=== PATIENT | male | born 1965 | race Caucasian/White ===

== ENCOUNTER 2017-02-18 13:36 | Observation (INO) | payer SELFPAY ==
[~2017-02-18] VITALS: Ht 182.9 cm; Wt 153.6 kg
[2017-02-18] MEDS ORDERED: ATOR40TA78 PO (13:51)
[2017-02-18] MEDS ORDERED: AMIO200T42 PO (13:51)
[2017-02-18] MEDS ORDERED: METO25TA35 PO (13:51)
[2017-02-18] MEDS ORDERED: LISI-170 PO (13:51)
[2017-02-18] MEDS ORDERED: SODIUM CHLORIDE FLUSH 10ML SYR IVF ONE (14:30)
[2017-02-18] MEDS ORDERED: MORPHINE SULFATE 4 MG/ML, 1ML ONE ×3 (14:31→20:10)
[2017-02-18 14:32] LABS: HEMOGLOBIN 14.1 g/dL (13.7-18.0)
[2017-02-18] MEDS: MORPHINE SULFATE 4 MG/ML, 1ML IVPush PRN ×3 (14:35→20:11)
[2017-02-18 14:44] LABS: ASPARTATE AMINO TRANSFERASE 15 U/L (15-37); BLOOD UREA NITROGEN 17 mg/dL (7-18)
[2017-02-18 14:50] LABS: IS PT STATUS REG ER OR PRE ER? YES
[2017-02-18] MEDS ORDERED: BISACODYL 10 MG SUPP PR PRN (17:00)
[2017-02-18] MEDS ORDERED: POLYETHYLENE GLYCOL 17 GM PACKET PO PRN (17:00)
[2017-02-18] MEDS ORDERED: HYDROcodone/APAP 5/325 TABLET PO PRN (17:00)
[2017-02-18] MEDS ORDERED: NITROGLYCERIN 0.4 MG BOTTLE (25 TABS) SL PRN (17:00)
[2017-02-18] MEDS ORDERED: ENOXAPARIN 40 MG/0.4 ML SQ SCH (17:00)
[2017-02-18] MEDS ORDERED: ONDANSETRON 2MG/ML, 2ML IVP PRN (17:00)
[2017-02-18] MEDS ORDERED: LABETALOL 5MG/ML, 20ML IV PRN (17:00)
[2017-02-18] MEDS ORDERED: ACETAMINOPHEN 325 MG TABLET PO PRN (17:00)
[2017-02-18] MEDS ORDERED: DOCUSATE 100 MG CAPSULE PO PRN (17:00)
[2017-02-18] MEDS ORDERED: ENOXAPARIN 40 MG/0.4 ML ONE (17:59)
[2017-02-18] MEDS ORDERED: HYDROcodone/APAP 5/325 TABLET ONE (18:13)
[2017-02-18 19:51] LABS: IS PT STATUS REG ER OR PRE ER? YES
[2017-02-18] MEDS ORDERED: ATORVASTATIN 40 MG TABLET PO SCH (21:00)
[2017-02-18 23:28] VITALS: BP 140/97
[2017-02-19 01:05] VITALS: BP 138/89
[2017-02-19] MEDS: MORPHINE SULFATE 4 MG/ML, 1ML IVPush PRN ×4 (01:11→13:00)
[2017-02-19] MEDS: METOPROLOL TARTRATE 25 MG TABLET PO SCH ×2 (01:12→13:00)
[2017-02-19] MEDS: SODIUM CHLORIDE FLUSH 10ML SYR IVF SCH ×2 (01:13→08:37)
[2017-02-19] MEDS ORDERED: PNEUMOCOCCAL 23 VACCINE IM-VACC ONE (02:30)
[2017-02-19 02:41] LABS: IS PT STATUS REG ER OR PRE ER? NO
[2017-02-19] MEDS ORDERED: ASPIRIN 325 MG TABLET EC PO SCH (06:00)
[2017-02-19 07:47] VITALS: BP 111/71
[2017-02-19] MEDS ORDERED: LISINOPRIL 20 MG TABLET PO SCH (09:00)
[2017-02-19] MEDS ORDERED: AMIODARONE 200 MG TABLET PO SCH (09:00)
[2017-02-19] MEDS ORDERED: REGADENOSON 0.4 MG/5 ML SYRINGE ONE (09:52)
[2017-02-19 12:45] VITALS: BP 170/109
[2017-02-19 15:30] VITALS: BP 124/81
== END 2017-02-19 16:55 | disposition home or self-care (01) ==
LOC: ED 14:05 → EDIP 16:28 → INTOOBSV 16:28 → 5SO 22:20 → DCLOUNGE 02-19 16:40
PROVIDERS: ADMIT Internal Medicine; ATTEND Internal Medicine
DX: R07.89 Other chest pain (principal); I48.91 Unspecified atrial fibrillation; I11.9 Hypertensive heart disease without heart failure; E78.5 Hyperlipidemia, unspecified; E66.01 Morbid (severe) obesity due to excess calories; E44.0 Moderate protein-calorie malnutrition; I25.2 Old myocardial infarction; Z87.891 Personal history of nicotine dependence; Z82.3 Family history of stroke; Z82.49 Family history of ischemic heart disease and other diseases of the circulatory system; Z83.3 Family history of diabetes mellitus; Z90.49 Acquired absence of other specified parts of digestive tract
CPT/HCPCS: 36415; 71010; 78452; 80053; 80061; 83880; 84484; 85025; 85610; 85730; 93005; 93017; 96372; 96374; 96376; 99285; A9502; C9898; G0378; J1650; J2785

== ENCOUNTER 2018-04-10 18:16 | Inpatient (IN) | payer OTHER ==
[~2018-04-10] VITALS: Ht 182.9 cm; Wt 158.9 kg
[~2018-04-10 18:16] MED LIST: AMIO200T42 PO; ATOR40TA78 PO; LISI-167 PO; LISI-170 PO; METO25TA35 PO
[2018-04-10] MEDS ORDERED: ASPIRIN 81 MG TABLET CHEW PO ONE (19:00)
[2018-04-10 19:07] LABS: BASOPHILS # (AUTO) 0.08 x10^3/uL (0-0.1); BASOPHILS % (AUTO) 1 % (0-1); EOSINOPHILS # (AUTO) 0.06 x10^3/uL (0-0.4); EOSINOPHILS % (AUTO) 1 % (1-7); LYMPHOCYTES # (AUTO) 2.51 x10^3/uL (1-3.4); LYMPHOCYTES % (AUTO) 20 % (22-44); MD NO; MEAN CORPUSCULAR HEMOGLOBIN 30.3 pg (27.5-34.5); MEAN CORPUSCULAR HGB CONC 32.9 g/dL (33.2-36.2); MEAN PLATELET VOLUME 8.1 fL (7.4-10.4); MONOCYTES # (AUTO) 1.04 x10^3/uL (0.2-0.8); MONOCYTES % (AUTO) 8 % (2-9); NEUTROPHILS # (AUTO) 8.72 x10^3/uL (1.8-6.8); NEUTROPHILS % (AUTO) 70 % (42-75); PLATELET COUNT 354 x10^3/uL (130-400); RED BLOOD COUNT 5.08 x10^6/uL (4.38-5.82); RED CELL DISTRIBUTION WIDTH 13.3 % (9.4-14.8)
[2018-04-10 19:20] LABS: ALANINE AMINOTRANSFERASE 28 U/L (12-78); ALBUMIN 3.9 g/dL (3.4-5.0); ANION GAP 8 mmol/L (5-15); CHLORIDE 106 mmol/L (98-107); CREATININE 1.08 mg/dL (0.7-1.3)
[2018-04-10 19:24] LABS: ALKALINE PHOSPHATASE 137 U/L (45-117); BILIRUBIN,TOTAL 0.5 mg/dL (0.2-1.0); TOTAL PROTEIN 8.1 g/dL (6.4-8.2); TROPONIN I < 0.015 ng/mL (0.000-0.045)
[2018-04-10] MEDS ORDERED: ASPIRIN 81 MG TABLET CHEW ONE (19:51)
[2018-04-10] MEDS ORDERED: ONDANSETRON 2MG/ML, 2ML ONE (20:14)
[2018-04-10] MEDS ORDERED: MORPHINE SULFATE 4 MG/ML, 1ML ONE (20:15)
[2018-04-10] MEDS ORDERED: MORPHINE SULFATE 4 MG/ML, 1ML IVPush PRN ×2 (20:30→21:30)
[2018-04-10] MEDS ORDERED: ONDANSETRON 2MG/ML, 2ML IVPush ONE (20:30)
[2018-04-10] MEDS ORDERED: SODIUM CHLORIDE 0.9% 1,000 ML IV ONE (21:09)
[2018-04-10] MEDS ORDERED: ONDANSETRON 2MG/ML, 2ML IVPush PRN ×2 (21:30→22:00)
[2018-04-10] MEDS ORDERED: ACETAMINOPHEN 325 MG TABLET PO PRN (22:00)
[2018-04-10] MEDS ORDERED: ATORVASTATIN 40 MG TABLET PO SCH (22:00)
[2018-04-10] MEDS ORDERED: POLYETHYLENE GLYCOL 17 GM PACKET PO PRN (22:00)
[2018-04-10] MEDS ORDERED: BISACODYL 10 MG SUPP PR PRN (22:00)
[2018-04-10] MEDS ORDERED: NITROGLYCERIN 0.4 MG BOTTLE (25 TABS) SL PRN (22:00)
[2018-04-10 22:41] VITALS: BP 128/86
[2018-04-10] MEDS: morphine SULFATE 10 MG/ML, 1ML IVPush PRN (23:31)
[2018-04-10] MEDS: METOPROLOL TARTRATE 25 MG TABLET PO SCH (23:31)
[2018-04-10] MEDS: SODIUM CHLORIDE FLUSH 10ML SYR IVF SCH (23:31)
[2018-04-10] MEDS: HEPARIN 5,000 UNITS/ML, 1ML SQ SCH (23:32)
[2018-04-10 23:43] LABS: FREE T4 (FREE THYROXINE) 1.08 ng/dL (0.76-1.46); THYROID STIMULATING HORMONE 1.01 mIU/L (0.358-3.740)
[2018-04-11 01:47] LABS: TROPONIN I < 0.015 ng/mL (0.000-0.045)
[2018-04-11 01:55] VITALS: BP 117/80
[2018-04-11] MEDS: morphine SULFATE 10 MG/ML, 1ML IVPush PRN ×5 (02:31→14:52)
[2018-04-11 02:43] LABS: MICROSCOPIC NOT IND
[2018-04-11 02:57] LABS: CULTURE INDICATED? NO
[2018-04-11] MEDS ORDERED: ASPIRIN 81 MG TABLET EC PO SCH (06:00)
[2018-04-11 07:02] VITALS: BP 105/69
[2018-04-11 07:28] LABS: BASOPHILS # (AUTO) 0.07 x10^3/uL (0-0.1); BASOPHILS % (AUTO) 1 % (0-1); EOSINOPHILS # (AUTO) 0.07 x10^3/uL (0-0.4); EOSINOPHILS % (AUTO) 1 % (1-7); LYMPHOCYTES % (AUTO) 25 % (22-44); MD NO; MEAN CORPUSCULAR HGB CONC 32.9 g/dL (33.2-36.2); MEAN CORPUSCULAR VOLUME 91.1 fL (81-97); MEAN PLATELET VOLUME 8.2 fL (7.4-10.4); MONOCYTES # (AUTO) 1.01 x10^3/uL (0.2-0.8); MONOCYTES % (AUTO) 11 % (2-9); NEUTROPHILS # (AUTO) 5.98 x10^3/uL (1.8-6.8); NEUTROPHILS % (AUTO) 63 % (42-75); PLATELET COUNT 326 x10^3/uL (130-400); RED BLOOD COUNT 4.76 x10^6/uL (4.38-5.82); RED CELL DISTRIBUTION WIDTH 13.3 % (9.4-14.8)
[2018-04-11 07:37] LABS: TROPONIN I < 0.015 ng/mL (0.000-0.045)
[2018-04-11] MEDS ORDERED: REGADENOSON 0.4 MG/5 ML SYRINGE ONE (08:13)
[2018-04-11] MEDS: SODIUM CHLORIDE FLUSH 10ML SYR IVF SCH (08:17)
[2018-04-11] MEDS: HEPARIN 5,000 UNITS/ML, 1ML SQ SCH (08:18)
[2018-04-11] MEDS ORDERED: SENNA/DOCUSATE TABLET PO SCH (09:00)
[2018-04-11] MEDS ORDERED: LISINOPRIL 10 MG TABLET PO SCH (09:00)
[2018-04-11 11:14] VITALS: BP 132/89
[2018-04-11] MEDS: METOPROLOL TARTRATE 25 MG TABLET PO SCH (11:38)
[2018-04-11 14:57] VITALS: BP 113/75
[2018-04-11 15:34] VITALS: BP 104/72
== END 2018-04-11 18:18 | disposition home or self-care (01) | DRG 313 ==
LOC: ED 20:47 → EDIP 21:09 → 5SO 22:45
PROVIDERS: ADMIT Internal Medicine; ATTEND Internal Medicine
DX: R07.89 Other chest pain (principal); Z68.42 Body mass index [BMI] 45.0-49.9, adult; Z56.6 Other physical and mental strain related to work; D72.829 Elevated white blood cell count, unspecified; E66.01 Morbid (severe) obesity due to excess calories; E78.5 Hyperlipidemia, unspecified; F41.9 Anxiety disorder, unspecified; I10 Essential (primary) hypertension; I48.0 Paroxysmal atrial fibrillation; Z82.3 Family history of stroke; Z87.891 Personal history of nicotine dependence; Z82.49 Family history of ischemic heart disease and other diseases of the circulatory system; Z90.49 Acquired absence of other specified parts of digestive tract; I25.2 Old myocardial infarction; Z88.5 Allergy status to narcotic agent; Z88.8 Allergy status to other drugs, medicaments and biological substances
CPT/HCPCS: 36415; 71045; 78452; 80053; 81003; 84439; 84443; 84484; 85025; 93005; 93017; J1644; J2405; J2785; A9502; C9898; J2270; J7030

== ENCOUNTER 2018-12-10 15:07 | Observation (INO) | payer MEDICAID ==
[~2018-12-10] VITALS: Ht 182.9 cm; Wt 157.6 kg
[~2018-12-10 15:07] MED LIST changes: +ATOR20TA37 PO; +FURO-93 PO; +METO50TA82 PO; +POTA10TA11 PO; +RIVA20TA PO; +SPIR25TA5 PO
[2018-12-10] MEDS ORDERED: SODIUM CHLORIDE FLUSH 10ML SYR IVF ONE (15:30)
[2018-12-10 15:39] LABS: BASOPHILS # (AUTO) 0.03 x10^3/uL (0-0.1); BASOPHILS % (AUTO) 0 % (0-1); EOSINOPHILS # (AUTO) 0.08 x10^3/uL (0-0.4); EOSINOPHILS % (AUTO) 1 % (1-7); LYMPHOCYTES % (AUTO) 20 % (22-44); MD NO; MEAN CORPUSCULAR HEMOGLOBIN 30.5 pg (27.5-34.5); MEAN CORPUSCULAR HGB CONC 32.5 g/dL (33.2-36.2); MEAN PLATELET VOLUME 8.1 fL (7.4-10.4); MONOCYTES # (AUTO) 0.84 x10^3/uL (0.2-0.8); MONOCYTES % (AUTO) 7 % (2-9); NEUTROPHILS # (AUTO) 8.13 x10^3/uL (1.8-6.8); NEUTROPHILS % (AUTO) 71 % (42-75); PLATELET COUNT 393 x10^3/uL (130-400); RED BLOOD COUNT 5.11 x10^6/uL (4.38-5.82); RED CELL DISTRIBUTION WIDTH 13.3 % (9.4-14.8)
[2018-12-10] MEDS ORDERED: ACETAMINOPHEN 500 MG TABLET ONE (15:43)
[2018-12-10 15:49] LABS: ALANINE AMINOTRANSFERASE 21 U/L (12-78); ALBUMIN 3.7 g/dL (3.4-5.0); ANION GAP 8 mmol/L (5-15); CALCIUM 9.3 mg/dL (8.5-10.1); CHLORIDE 107 mmol/L (98-107); CREATININE 0.99 mg/dL (0.7-1.3)
[2018-12-10 15:53] LABS: ALKALINE PHOSPHATASE 117 U/L (45-117); BILIRUBIN,TOTAL 0.3 mg/dL (0.2-1.0); TROPONIN I < 0.015 ng/mL (0.000-0.045)
[2018-12-10 15:56] LABS: INTERNATIONAL NORMALIZED RATIO 1.12 (0.93-1.1); PROTHROMBIN TIME 11.8 Seconds (9.6-11.5)
[2018-12-10] MEDS ORDERED: ACETAMINOPHEN 500 MG TABLET PO ONE (16:00)
[2018-12-10] MEDS ORDERED: CYCLOBENZAPRINE 10 MG TABLET PO ONE (16:30)
[2018-12-10] MEDS ORDERED: CYCLOBENZAPRINE 10 MG TABLET ONE (16:47)
--- NOTE | 2018-12-10 16:49 | NUR ---
PT MEDICATED PER ORDER. PT RESTING WATCHING TV.
[2018-12-10] MEDS ORDERED: ACETAMINOPHEN 325 MG TABLET PO PRN (17:00)
[2018-12-10] MEDS ORDERED: ONDANSETRON 2MG/ML, 2ML IVPush PRN (17:00)
[2018-12-10] MEDS ORDERED: ONDANSETRON ODT 4 MG PO PRN (17:00)
[2018-12-10] MEDS ORDERED: DIGO125T10 PO (17:42)
[2018-12-10 18:10] LABS: TROPONIN I < 0.015 ng/mL (0.000-0.045)
[2018-12-10 18:24] VITALS: BP 123/76
[2018-12-10] MEDS ORDERED: NITROGLYCERIN 0.4 MG BOTTLE (25 TABS) SL PRN (18:30)
[2018-12-10] MEDS ORDERED: RIVAROXABAN 20 MG TABLET PO SCH (18:30)
[2018-12-10] MEDS: morphine SULFATE 10 MG/ML, 1ML IVPush PRN ×2 (18:42→22:40)
[2018-12-10 19:24] VITALS: BP 111/75
[2018-12-10] MEDS ORDERED: ATORVASTATIN 40 MG TABLET PO SCH (21:00)
[2018-12-10] MEDS ORDERED: ATORVASTATIN 20 MG TABLET PO SCH (21:00)
[2018-12-10] MEDS: CARVEDILOL 6.25 MG TABLET PO SCH (22:39)
[2018-12-10 23:04] LABS: TROPONIN I < 0.015 ng/mL (0.000-0.045)
[2018-12-11 01:39] VITALS: BP 110/64
[2018-12-11] MEDS: morphine SULFATE 10 MG/ML, 1ML IVPush PRN (04:50)
[2018-12-11] MEDS: CARVEDILOL 6.25 MG TABLET PO SCH (05:38)
[2018-12-11 05:56] LABS: BASOPHILS # (AUTO) 0.08 x10^3/uL (0-0.1); BASOPHILS % (AUTO) 1 % (0-1); EOSINOPHILS # (AUTO) 0.09 x10^3/uL (0-0.4); EOSINOPHILS % (AUTO) 1 % (1-7); LYMPHOCYTES # (AUTO) 2.33 x10^3/uL (1-3.4); LYMPHOCYTES % (AUTO) 30 % (22-44); MD NO; MEAN CORPUSCULAR HEMOGLOBIN 31.7 pg (27.5-34.5); MEAN CORPUSCULAR HGB CONC 33.9 g/dL (33.2-36.2); MEAN CORPUSCULAR VOLUME 93.4 fL (81-97); MONOCYTES # (AUTO) 0.74 x10^3/uL (0.2-0.8); MONOCYTES % (AUTO) 10 % (2-9); NEUTROPHILS # (AUTO) 4.58 x10^3/uL (1.8-6.8); NEUTROPHILS % (AUTO) 59 % (42-75); PLATELET COUNT 304 x10^3/uL (130-400); RED BLOOD COUNT 4.51 x10^6/uL (4.38-5.82); RED CELL DISTRIBUTION WIDTH 13.3 % (9.4-14.8)
[2018-12-11 06:02] LABS: ANION GAP 7 mmol/L (5-15); CALCIUM 8.6 mg/dL (8.5-10.1); CHLORIDE 108 mmol/L (98-107); CREATININE 0.83 mg/dL (0.7-1.3)
[2018-12-11 06:06] LABS: HDL CHOLESTEROL (DIRECT) 52 mg/dL (40-60); TRIGLYCERIDES 128 mg/dL (50-200); VLDL CHOLESTEROL 26 mg/dL (0-25)
[2018-12-11 06:23] LABS: CHOL/HDL RATIO 2.6; CHOLESTEROL, TOTAL 135 mg/dL (140-239); HDL CHOL % 39 % (26-37); LDL CHOLESTEROL,CALCULATED 57 mg/dL (54-169); LDL/HDL RATIO 1.1 (0.5-3.0)
[2018-12-11 06:44] VITALS: BP 107/76
[2018-12-11] MEDS ORDERED: SPIRONOLACTONE 25 MG TABLET PO SCH (09:00)
[2018-12-11] MEDS ORDERED: POTASSIUM CHLORIDE 10 MEQ TABLET.ER PO SCH (09:00)
[2018-12-11] MEDS ORDERED: LISINOPRIL 10 MG TABLET PO SCH (09:00)
[2018-12-11] MEDS ORDERED: FUROSEMIDE 20 MG TABLET PO SCH (09:00)
[2018-12-11] MEDS ORDERED: OXYcodone/APAP 5/325MG TABLET PO ONE (12:30)
[2018-12-11 13:32] VITALS: BP 113/77
[2018-12-11 13:34] VITALS: BP 106/60
[2018-12-11] MEDS ORDERED: NITR0.4T SL (16:00)
[2018-12-11] MEDS ORDERED: ACET325T14 PO (16:00)
[2018-12-11] MEDS ORDERED: RIVAROXABAN 20 MG TABLET PO SCH (17:00)
== END 2018-12-11 17:08 | disposition home or self-care (01) ==
LOC: ED 16:31 → EDIP 16:46 → 5SO 17:53 → DCLOUNGE 12-11 16:58
PROVIDERS: ADMIT Internal Medicine; ATTEND Internal Medicine
DX: R07.89 Other chest pain (principal); I48.0 Paroxysmal atrial fibrillation; I48.2 Chronic atrial fibrillation; E78.00 Pure hypercholesterolemia, unspecified; E78.5 Hyperlipidemia, unspecified; F41.9 Anxiety disorder, unspecified; I10 Essential (primary) hypertension; D68.59 Other primary thrombophilia; E66.01 Morbid (severe) obesity due to excess calories; I25.2 Old myocardial infarction; Z79.01 Long term (current) use of anticoagulants; Z82.3 Family history of stroke; Z82.49 Family history of ischemic heart disease and other diseases of the circulatory system; Z87.442 Personal history of urinary calculi
CPT/HCPCS: 36415; 71045; 80048; 80053; 80061; 80162; 83880; 84484; 85025; 85379; 85610; 85730; 93005; 93306; 93970; 96374; 96376; 99284; G0378; J2270

== ENCOUNTER 2019-01-05 23:17 | Observation (INO) | payer MEDICAID ==
[~2019-01-05] VITALS: Ht 182.9 cm; Wt 155.6 kg
[~2019-01-05 23:17] MED LIST changes: +ACET325T14 PO; +DIGO125T10 PO; +NITR0.4T SL
--- NOTE | 2019-01-05 23:18 | NUR ---
REPORT RECEIVED FROM [facility]. PT COMPLAINS OF SUBSTERNAL CHEST "PRESSURE" THAT BEGAN AT 1600 TODAY. PT RATES PAIN AT A 9/10 ON PAIN SCALE AT IT'S WORST. PTS STATES CURRENT PAIN IS A 7/10. PAIN RADIATES TO LEFT SIDE OF CHEST AND SHOULDER. PT C/O ASSOCIATED NAUSEA, DIAPHORESIS, WHICH HAS RESOLVED. PT WAS SEEN LAST WEEK AT [facility] AND WAS CARDIOVERTED OUT OF ATRIAL FIBRILLATION. PT EXPLAINS THAT HE HAS SINCE NOTICED SWELLING TO HIS LOWER EXTREMITIES. DURING TRANSPORT PT RECEIVED A TOTAL OF 10MG OF MORPHINE, WITH THE LAST 2MG DOSE BEING AT 2300. 4MG ZOFRAN ADMINISTERED WELL.
[2019-01-06 00:21] LABS: BASOPHILS # (AUTO) 0.16 x10^3/uL (0-0.1); BASOPHILS % (AUTO) 2 % (0-1); EOSINOPHILS # (AUTO) 0.09 x10^3/uL (0-0.4); EOSINOPHILS % (AUTO) 1 % (1-7); LYMPHOCYTES # (AUTO) 2.03 x10^3/uL (1-3.4); LYMPHOCYTES % (AUTO) 20 % (22-44); MD NO; MEAN CORPUSCULAR HEMOGLOBIN 31.1 pg (27.5-34.5); MEAN CORPUSCULAR HGB CONC 33.6 g/dL (33.2-36.2); MEAN CORPUSCULAR VOLUME 92.4 fL (81-97); MEAN PLATELET VOLUME 7.4 fL (7.4-10.4); MONOCYTES # (AUTO) 0.77 x10^3/uL (0.2-0.8); MONOCYTES % (AUTO) 8 % (2-9); NEUTROPHILS # (AUTO) 7.17 x10^3/uL (1.8-6.8); NEUTROPHILS % (AUTO) 70 % (42-75); PLATELET COUNT 363 x10^3/uL (130-400); RED BLOOD COUNT 4.43 x10^6/uL (4.38-5.82); RED CELL DISTRIBUTION WIDTH 13.9 % (9.4-14.8)
--- NOTE | 2019-01-06 00:30 | NUR ---
PT RESTING AND WATCHING TV. PT HAS NO NEEDS AT THIS TIME. MED REC COMPLETE. CALL LIGHT IN REACH
[2019-01-06 00:31] LABS: ALBUMIN 3.5 g/dL (3.4-5.0); ANION GAP 6 mmol/L (5-15); CALCIUM 8.5 mg/dL (8.5-10.1); CHLORIDE 110 mmol/L (98-107); CREATININE 0.86 mg/dL (0.7-1.3)
[2019-01-06] MEDS ORDERED: AMIO200T42 PO (00:34)
[2019-01-06] MEDS ORDERED: DILT240C61 PO (00:34)
[2019-01-06] MEDS ORDERED: DIGO250T PO (00:34)
[2019-01-06 00:35] LABS: TROPONIN I < 0.015 ng/mL (0.000-0.045)
[2019-01-06] MEDS ORDERED: DOCUSATE 100 MG CAPSULE PO PRN (01:30)
[2019-01-06] MEDS ORDERED: POLYETHYLENE GLYCOL 17 GM PACKET PO PRN (01:30)
[2019-01-06] MEDS ORDERED: morphine SULFATE 10 MG/ML, 1ML IVPush PRN (01:30)
[2019-01-06] MEDS ORDERED: BISACODYL 10 MG SUPP PR PRN (01:30)
[2019-01-06] MEDS ORDERED: ONDANSETRON ODT 4 MG PO PRN (01:30)
[2019-01-06] MEDS ORDERED: LABETALOL 5MG/ML, 20ML IVPush PRN (01:30)
[2019-01-06] MEDS ORDERED: PROMETHAZINE 25 MG/ML, 1ML IM PRN (01:30)
[2019-01-06] MEDS ORDERED: hydrALAzine 20 MG/ML, 1ML IVPush PRN (01:30)
[2019-01-06] MEDS ORDERED: ONDANSETRON 2MG/ML, 2ML IVPush PRN (01:30)
[2019-01-06] MEDS ORDERED: ACETAMINOPHEN 325 MG TABLET PO PRN (01:30)
[2019-01-06] MEDS ORDERED: NITROGLYCERIN 0.4 MG BOTTLE (25 TABS) SL PRN (02:00)
--- NOTE | 2019-01-06 02:18 | NUR ---
pt resting. pt given water and has no other needs. call light in reach
[2019-01-06 02:21] LABS: FREE T4 (FREE THYROXINE) 1.09 ng/dL (0.76-1.46); TROPONIN I < 0.015 ng/mL (0.000-0.045)
[2019-01-06 02:24] LABS: HEMOGLOBIN A1C 5.5 % (4.2-6.3)
[2019-01-06] MEDS ORDERED: FUROSEMIDE 20 MG/2 ML ONE (03:46)
[2019-01-06] MEDS ORDERED: HYDROcodone/APAP 5/325 TABLET ONE ×2 (03:47→09:48)
[2019-01-06] MEDS: FUROSEMIDE 20 MG/2 ML IV SCH ×2 (03:53→09:23)
[2019-01-06] MEDS: HYDROcodone/APAP 5/325 TABLET PO PRN ×4 (03:53→20:16)
--- NOTE | 2019-01-06 04:01 | NUR ---
PT MEDICATED. VSS. PT GIVEN URINAL. CALL LIGHT IN REACH
--- NOTE | 2019-01-06 06:00 | NUR ---
PT RESTING WITH NO NEEDS AT THIS TIME. CALL LIGHT IN REACH
--- NOTE | 2019-01-06 07:40 | NUR ---
REPORT FROM NAJMA GATICA. PT RESTING ON BED, CALL LIGHT IN REACH. CP MONITORS IN PLACE. ALL CONCERNS ADRESSED.
--- NOTE | 2019-01-06 08:40 | NUR ---
DIET TRAY PROVIDED TO PT.
[2019-01-06] MEDS ORDERED: LISINOPRIL 10 MG TABLET ONE (08:42)
[2019-01-06] MEDS ORDERED: RIVAROXABAN 20 MG TABLET ONE (08:42)
[2019-01-06] MEDS: DIGOXIN 0.25 MG TABLET PO SCH (09:21)
[2019-01-06] MEDS: RIVAROXABAN 20 MG TABLET PO SCH (09:21)
[2019-01-06] MEDS: AMIODARONE 200 MG TABLET PO SCH (09:21)
[2019-01-06] MEDS: DILTIAZEM 240 MG CAP.ER.24H PO SCH (09:22)
[2019-01-06] MEDS: LISINOPRIL 10 MG TABLET PO SCH (09:22)
[2019-01-06 09:35] LABS: TROPONIN I < 0.015 ng/mL (0.000-0.045)
--- NOTE | 2019-01-06 11:03 | NUR ---
pt handoff report over phone to fritz hoyos
[2019-01-06 11:48] VITALS: BP 131/85
[2019-01-06 15:00] VITALS: BP 122/78
[2019-01-06 20:00] VITALS: BP 105/67
[2019-01-06] MEDS ORDERED: ATORVASTATIN 40 MG TABLET PO SCH (21:00)
[2019-01-07 02:00] VITALS: BP 99/63
[2019-01-07 04:57] LABS: BASOPHILS # (AUTO) 0.06 x10^3/uL (0-0.1); BASOPHILS % (AUTO) 1 % (0-1); EOSINOPHILS # (AUTO) 0.14 x10^3/uL (0-0.4); EOSINOPHILS % (AUTO) 1 % (1-7); LYMPHOCYTES # (AUTO) 1.66 x10^3/uL (1-3.4); LYMPHOCYTES % (AUTO) 17 % (22-44); MD NO; MEAN CORPUSCULAR HEMOGLOBIN 30.9 pg (27.5-34.5); MEAN CORPUSCULAR HGB CONC 33.2 g/dL (33.2-36.2); MEAN CORPUSCULAR VOLUME 93.1 fL (81-97); MEAN PLATELET VOLUME 7.6 fL (7.4-10.4); MONOCYTES # (AUTO) 0.88 x10^3/uL (0.2-0.8); MONOCYTES % (AUTO) 9 % (2-9); NEUTROPHILS # (AUTO) 6.82 x10^3/uL (1.8-6.8); NEUTROPHILS % (AUTO) 71 % (42-75); PLATELET COUNT 326 x10^3/uL (130-400); RED BLOOD COUNT 4.08 x10^6/uL (4.38-5.82); RED CELL DISTRIBUTION WIDTH 13.9 % (9.4-14.8)
[2019-01-07 05:07] LABS: CHLORIDE 105 mmol/L (98-107)
[2019-01-07 05:13] LABS: ALANINE AMINOTRANSFERASE 29 U/L (12-78); ALBUMIN 2.9 g/dL (3.4-5.0); ALKALINE PHOSPHATASE 80 U/L (45-117); ANION GAP 6 mmol/L (5-15); BILIRUBIN,TOTAL 0.5 mg/dL (0.2-1.0); CALCIUM 8.4 mg/dL (8.5-10.1); CHOL/HDL RATIO 2.9; CHOLESTEROL, TOTAL 168 mg/dL (140-239); CREATININE 0.78 mg/dL (0.7-1.3); HDL CHOL % 35 % (26-37); HDL CHOLESTEROL (DIRECT) 58 mg/dL (40-60); LDL CHOLESTEROL,CALCULATED 90 mg/dL (54-169); LDL/HDL RATIO 1.6 (0.5-3.0); TOTAL PROTEIN 6.5 g/dL (6.4-8.2); TRIGLYCERIDES 102 mg/dL (50-200); VLDL CHOLESTEROL 20 mg/dL (0-25)
[2019-01-07 07:13] VITALS: BP 146/78
[2019-01-07] MEDS: FUROSEMIDE 20 MG/2 ML IV SCH (07:16)
[2019-01-07] MEDS: LISINOPRIL 10 MG TABLET PO SCH (07:16)
[2019-01-07] MEDS: DIGOXIN 0.25 MG TABLET PO SCH (07:16)
[2019-01-07] MEDS: RIVAROXABAN 20 MG TABLET PO SCH (07:16)
[2019-01-07] MEDS: AMIODARONE 200 MG TABLET PO SCH (07:17)
[2019-01-07] MEDS: HYDROcodone/APAP 5/325 TABLET PO PRN ×2 (07:25→11:56)
[2019-01-07] MEDS: DILTIAZEM 240 MG CAP.ER.24H PO SCH (07:25)
== END 2019-01-07 13:40 | disposition home or self-care (01) ==
LOC: ED 23:35 → EDIP 01-06 01:01 → INTOOBSV 01-06 01:01 → 5SO 01-06 11:43 → DCLOUNGE 01-07 13:26
PROVIDERS: ADMIT Internal Medicine; ATTEND Internal Medicine
DX: R07.89 Other chest pain (principal); I10 Essential (primary) hypertension; E78.5 Hyperlipidemia, unspecified; I48.0 Paroxysmal atrial fibrillation; D68.69 Other thrombophilia; E66.01 Morbid (severe) obesity due to excess calories; E78.00 Pure hypercholesterolemia, unspecified; I11.0 Hypertensive heart disease with heart failure; I25.10 Atherosclerotic heart disease of native coronary artery without angina pectoris; I50.9 Heart failure, unspecified; I25.2 Old myocardial infarction; N20.0 Calculus of kidney; Z82.3 Family history of stroke; Z82.49 Family history of ischemic heart disease and other diseases of the circulatory system; Z87.442 Personal history of urinary calculi; Z87.891 Personal history of nicotine dependence
CPT/HCPCS: 36415; 80048; 80053; 80061; 82040; 83036; 83735; 83880; 84439; 84443; 84484; 85025; 93005; 96374; 96376; 99284; G0378; J1940; 99285

== ENCOUNTER 2019-05-05 11:11 | Emergency (ER) | payer MEDICAID ==
[~2019-05-05] VITALS: Ht 182.9 cm; Wt 159.9 kg
[~2019-05-05 11:11] MED LIST changes: +DIGO250T PO; +DILT240C61 PO; -NITR0.4T SL; +NITR0.4T41 SL
--- NOTE | 2019-05-05 11:23 | NUR ---
UA CUP GIVEN
--- NOTE | 2019-05-05 11:41 | NUR ---
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
--- NOTE | 2019-05-05 11:50 | NUR ---
TO ROOM FROM TRIAGE "I THINK I HAVE A LEFT KIDNEY STONE, BLOOD IN URINE, NAUSEA" X1 WK, FEELS LIKE HX OF SAME." REPORTS 8/10 PAIN TO LEFT FLANK\\ PLACED ON NIBP/POX URINE SAMPLE SENT ALREADY UPDATE DON ESTIMATED POC
[2019-05-05 12:45] LABS: BASOPHILS # (AUTO) 0.04 x10^3/uL (0-0.1); BASOPHILS % (AUTO) 0 % (0-1); EOSINOPHILS # (AUTO) 0.05 x10^3/uL (0-0.4); EOSINOPHILS % (AUTO) 0 % (1-7); LYMPHOCYTES # (AUTO) 1.83 x10^3/uL (1-3.4); LYMPHOCYTES % (AUTO) 15 % (22-44); MD NO; MEAN CORPUSCULAR HEMOGLOBIN 29.3 pg (27.5-34.5); MEAN CORPUSCULAR HGB CONC 32.2 g/dL (33.2-36.2); MEAN CORPUSCULAR VOLUME 91.1 fL (81-97); MEAN PLATELET VOLUME 7.8 fL (7.4-10.4); MONOCYTES # (AUTO) 0.71 x10^3/uL (0.2-0.8); MONOCYTES % (AUTO) 6 % (2-9); NEUTROPHILS # (AUTO) 9.41 x10^3/uL (1.8-6.8); NEUTROPHILS % (AUTO) 78 % (42-75); PLATELET COUNT 339 x10^3/uL (130-400); RED BLOOD COUNT 4.78 x10^6/uL (4.38-5.82); RED CELL DISTRIBUTION WIDTH 14.7 % (9.4-14.8)
[2019-05-05 12:46] LABS: ALBUMIN 3.7 g/dL (3.4-5.0); ANION GAP 8 mmol/L (5-15); CALCIUM 8.8 mg/dL (8.5-10.1); CHLORIDE 108 mmol/L (98-107); CREATININE 0.91 mg/dL (0.7-1.3)
[2019-05-05 12:47] LABS: MICROSCOPIC INDICATED
[2019-05-05 12:51] LABS: CULTURE INDICATED? NO
[2019-05-05] MEDS ORDERED: HYDROcodone/APAP 5/325 TABLET ONE (13:06)
[2019-05-05] MEDS ORDERED: HYDROcodone/APAP 5/325 TABLET PO ONE (13:30)
--- NOTE | 2019-05-05 13:30 | NUR ---
TO CT SCAN
[2019-05-05 14:49] VITALS: BP 119/48
== END 2019-05-05 14:52 | disposition home or self-care (01) ==
LOC: ED 14:46
DX: N20.0 Calculus of kidney (principal); R31.9 Hematuria, unspecified; R31.0 Gross hematuria; I25.2 Old myocardial infarction; Z72.9 Problem related to lifestyle, unspecified; Z88.8 Allergy status to other drugs, medicaments and biological substances
CPT/HCPCS: 36415; 74176; 80048; 81001; 82040; 85025; 99284

== ENCOUNTER 2019-07-09 07:25 | Observation (INO) | payer MEDICAID ==
[~2019-07-09] VITALS: Ht 182.9 cm; Wt 155.8 kg
[2019-07-09] MEDS ORDERED: ONDANSETRON 2MG/ML, 2ML IVPush ONE (08:00)
[2019-07-09] MEDS ORDERED: SODIUM CHLORIDE FLUSH 10ML SYR IVF ONE (08:00)
[2019-07-09] MEDS ORDERED: LABETALOL 5 MG/ML SYR. (IV ONLY) IVPush ONE (08:00)
[2019-07-09] MEDS ORDERED: MORPHINE SULFATE 4 MG/ML, 1ML IVPush PRN (08:00)
--- NOTE | 2019-07-09 08:02 | NUR ---
PT UPRIGHT ON GURNEY AWAKE & CALM, RESPONDS APPROP TO STAFF, COMFORT MEASURES PROVIDED, CALL LIGHT WITHIN REACH.
[2019-07-09] MEDS ORDERED: ONDANSETRON 2MG/ML, 2ML ONE (08:03)
[2019-07-09] MEDS ORDERED: LABETALOL 5MG/ML, 20ML ONE (08:03)
[2019-07-09] MEDS ORDERED: MORPHINE SULFATE 4 MG/ML, 1ML ONE (08:03)
[2019-07-09 08:12] LABS: BASOPHILS # (AUTO) 0.13 x10^3/uL (0-0.1); BASOPHILS % (AUTO) 2 % (0-1); EOSINOPHILS # (AUTO) 0.07 x10^3/uL (0-0.4); EOSINOPHILS % (AUTO) 1 % (1-7); LYMPHOCYTES # (AUTO) 1.98 x10^3/uL (1-3.4); LYMPHOCYTES % (AUTO) 23 % (22-44); MD NO; MEAN CORPUSCULAR HEMOGLOBIN 29.3 pg (27.5-34.5); MEAN CORPUSCULAR HGB CONC 32.1 g/dL (33.2-36.2); MEAN CORPUSCULAR VOLUME 91.1 fL (81-97); MEAN PLATELET VOLUME 7.7 fL (7.4-10.4); MONOCYTES # (AUTO) 0.71 x10^3/uL (0.2-0.8); MONOCYTES % (AUTO) 8 % (2-9); NEUTROPHILS # (AUTO) 5.62 x10^3/uL (1.8-6.8); NEUTROPHILS % (AUTO) 66 % (42-75); PLATELET COUNT 331 x10^3/uL (130-400); RED BLOOD COUNT 4.73 x10^6/uL (4.38-5.82); RED CELL DISTRIBUTION WIDTH 15.3 % (9.4-14.8)
[2019-07-09 08:18] LABS: ALBUMIN 3.4 g/dL (3.4-5.0); ANION GAP 7 mmol/L (5-15); CALCIUM 8.8 mg/dL (8.5-10.1); CHLORIDE 107 mmol/L (98-107)
[2019-07-09 08:23] LABS: ALANINE AMINOTRANSFERASE 23 U/L (12-78); ALKALINE PHOSPHATASE 96 U/L (45-117); BILIRUBIN,TOTAL 0.6 mg/dL (0.2-1.0); CREATININE 1.06 mg/dL (0.7-1.3); TOTAL PROTEIN 7.4 g/dL (6.4-8.2); TROPONIN I < 0.015 ng/mL (0.000-0.045)
--- NOTE | 2019-07-09 09:05 | NUR ---
PT REMAINS UPRIGHT ON GURNEY AWAKE & MORE COMFORTABLE, RESPONDS APPROP TO STAFF, COMFORT MEASURES PROVIDED, CALL LIGHT WITHIN REACH.
--- NOTE | 2019-07-09 09:23 | NUR ---
PT SAYS HE HAS ALLERGY TO CT CONTRAST-WAITING FOR MD ORDERS
[2019-07-09] MEDS ORDERED: methylPREDNISolone SOD SUCC 125 MG/2 ML IV ONE (09:30)
[2019-07-09] MEDS ORDERED: DIPHENHYDRAMINE 50 MG/ML, 1ML IVPush ONE (09:30)
[2019-07-09] MEDS ORDERED: methylPREDNISolone SOD SUCC 125 MG/2 ML ONE (09:31)
[2019-07-09] MEDS ORDERED: DIPHENHYDRAMINE 50 MG/ML, 1ML ONE (09:31)
--- NOTE | 2019-07-09 09:37 | NUR ---
CT CALLED TO NOTIFY THAT PT PRE-MEDICATED FOR ALLERGY TO CONTRAST.
--- NOTE | 2019-07-09 09:45 | NUR ---
PT TO CTA
--- NOTE | 2019-07-09 10:00 | NUR ---
PT RETURNED FROM CT, UPRIGHT ON GURNEY AWAKE & COMFORTABLE, RESPONDS APPROP TO STAFF, COMFORT MEASURES PROVIDED, CALL LIGHT WITHIN REACH.
[2019-07-09] MEDS ORDERED: OMNIPAQUE 350 MG/ML, 150 ML BOTTLE ONE (10:10)
[2019-07-09] MEDS ORDERED: FURO40TA6 PO (10:34)
--- NOTE | 2019-07-09 11:00 | NUR ---
PT REMAINS UPRIGHT ON GURNEY AWAKE & COMFORTABLE, RESPONDS APPROP TO STAFF, COMFORT MEASURES PROVIDED, CALL LIGHT WITHIN REACH.
[2019-07-09] MEDS ORDERED: NITROGLYCERIN 0.4 MG BOTTLE (25 TABS) SL PRN (11:30)
[2019-07-09] MEDS ORDERED: NITROGLYCERIN 0.4 MG/SPRAY SL PRN (11:30)
[2019-07-09] MEDS ORDERED: ACETAMINOPHEN 650 MG/20.3 ML UDC PO PRN (11:30)
[2019-07-09] MEDS ORDERED: ONDANSETRON 2MG/ML, 2ML IV PRN (11:30)
[2019-07-09] MEDS ORDERED: ENOXAPARIN 40 MG/0.4 ML SQ SCH (11:30)
[2019-07-09] MEDS ORDERED: hydrALAzine 20 MG/ML, 1ML IV PRN (12:00)
--- NOTE | 2019-07-09 12:02 | NUR ---
PT UPRIGHT ON GURNEY AWAKE & COMFORTABLE, RESPONDS APPROP TO STAFF, COMFORT MEASURES PROVIDED, CALL LIGHT WITHIN REACH.
--- NOTE | 2019-07-09 12:24 | NUR ---
Pt to be admitted to card-tele, room 527. Report called to Marcel.
[2019-07-09 12:48] VITALS: BP 143/85
[2019-07-09 13:05] VITALS: BP 143/85
[2019-07-09] MEDS: morphine SULFATE 10 MG/ML, 1ML IV PRN ×3 (13:31→22:30)
[2019-07-09 14:51] LABS: TROPONIN I < 0.015 ng/mL (0.000-0.045)
[2019-07-09 19:03] VITALS: BP 148/86
[2019-07-09] MEDS: SODIUM CHLORIDE FLUSH 10ML SYR IVF SCH (19:52)
[2019-07-09] MEDS: ATORVASTATIN 40 MG TABLET PO SCH (19:52)
[2019-07-09 19:56] LABS: TROPONIN I < 0.015 ng/mL (0.000-0.045)
[2019-07-10 02:03] VITALS: BP 130/71
[2019-07-10] MEDS: morphine SULFATE 10 MG/ML, 1ML IV PRN ×5 (03:24→21:18)
[2019-07-10 05:23] LABS: CHOL/HDL RATIO 2.7; LDL/HDL RATIO 1.4 (0.5-3.0)
[2019-07-10 06:53] VITALS: BP 133/86
[2019-07-10] MEDS: DIGOXIN 0.25 MG TABLET PO SCH (08:16)
[2019-07-10] MEDS: FUROSEMIDE 40 MG TABLET PO SCH (08:17)
[2019-07-10] MEDS: ASPIRIN 325 MG TABLET EC PO SCH (08:17)
[2019-07-10] MEDS: LISINOPRIL 10 MG TABLET PO SCH (08:17)
[2019-07-10] MEDS: POTASSIUM CHLORIDE 10 MEQ TABLET.ER PO SCH (08:18)
[2019-07-10] MEDS: RIVAROXABAN 20 MG TABLET PO SCH (08:18)
[2019-07-10] MEDS: AMIODARONE 200 MG TABLET PO SCH (08:18)
[2019-07-10] MEDS: DILTIAZEM 240 MG CAP.ER.24H PO SCH (08:18)
[2019-07-10] MEDS: SODIUM CHLORIDE FLUSH 10ML SYR IVF SCH ×2 (08:19→20:44)
[2019-07-10] MEDS ORDERED: DILTIAZEM HCL 240 MG PO SCH (09:00)
[2019-07-10 13:37] VITALS: BP 117/72
[2019-07-10 19:15] VITALS: BP 106/69
[2019-07-10] MEDS: ATORVASTATIN 40 MG TABLET PO SCH (20:44)
[2019-07-10] MEDS ORDERED: NITROGLYCERIN 0.4 MG/SPRAY SL PRN (21:00)
[2019-07-10] MEDS ORDERED: NITROGLYCERIN 0.4 MG BOTTLE (25 TABS) SL PRN (21:00)
[2019-07-11 01:17] VITALS: BP 122/73
[2019-07-11] MEDS: morphine SULFATE 10 MG/ML, 1ML IV PRN ×2 (01:20→06:16)
[2019-07-11] MEDS: ASPIRIN 325 MG TABLET EC PO SCH (05:58)
[2019-07-11 08:09] VITALS: BP 128/81
[2019-07-11] MEDS: SODIUM CHLORIDE FLUSH 10ML SYR IVF SCH (08:31)
[2019-07-11] MEDS: POTASSIUM CHLORIDE 10 MEQ TABLET.ER PO SCH (08:31)
[2019-07-11] MEDS: RIVAROXABAN 20 MG TABLET PO SCH (08:31)
[2019-07-11] MEDS: LISINOPRIL 10 MG TABLET PO SCH (08:32)
[2019-07-11] MEDS: DIGOXIN 0.25 MG TABLET PO SCH (08:32)
[2019-07-11] MEDS: DILTIAZEM 240 MG CAP.ER.24H PO SCH (08:32)
[2019-07-11] MEDS: AMIODARONE 200 MG TABLET PO SCH (08:32)
[2019-07-11] MEDS: FUROSEMIDE 40 MG TABLET PO SCH (08:33)
== END 2019-07-11 09:46 | disposition home or self-care (01) ==
LOC: ED 09:20 → INTOOBSV 10:38 → EDIP 10:38 → 5SO 12:49 → DCLOUNGE 07-11 09:35
PROVIDERS: ADMIT Internal Medicine; ATTEND Internal Medicine
DX: R07.89 Other chest pain (principal); I48.2 Chronic atrial fibrillation; F41.9 Anxiety disorder, unspecified; E78.5 Hyperlipidemia, unspecified; I10 Essential (primary) hypertension; I25.2 Old myocardial infarction; E66.01 Morbid (severe) obesity due to excess calories; R60.9 Edema, unspecified; N20.0 Calculus of kidney; Z79.01 Long term (current) use of anticoagulants; Z87.891 Personal history of nicotine dependence; Z79.899 Other long term (current) drug therapy; Z82.3 Family history of stroke; Z82.49 Family history of ischemic heart disease and other diseases of the circulatory system
CPT/HCPCS: 36415; 71045; 71275; 78452; 80053; 80061; 83880; 84443; 84484; 85025; 93005; 93017; 96374; 96375; 96376; 99284; A9502; C9898; G0378; J1200; J2270; J2405; J2930; Q9967